=== PATIENT | female | born 1935 | race Caucasian/White ===

== ENCOUNTER → 2018-03-15 | Outpatient (CLI) | payer OTHER ==
[~2018-03-15] MED LIST: ADULT LOW DOSE81 MG PO; AMBIEN 10 MG TA10 MG PO; CALCIUM-MAGNES1 EAC1 PO; MULTIVITAMINS PO; SIMVASTATIN40 MG PO; VITAMIN D32000 UNIT PO; VITAMINC500 PO
[2018-03-15 09:20] LABS: CREATININE 0.8 mg/dL (0.6-1.0)
== END ==
LOC: CAT 08:49
PROVIDERS: Internal Medicine Gastroenterology
DX: K57.30 Diverticulosis of large intestine without perforation or abscess without bleeding (principal); K86.2 Cyst of pancreas; N28.1 Cyst of kidney, acquired; M47.816 Spondylosis without myelopathy or radiculopathy, lumbar region; R19.7 Diarrhea, unspecified; Z90.49 Acquired absence of other specified parts of digestive tract

== ENCOUNTER → 2018-10-28 | Outpatient (CLI) | payer OTHER | LOC: CAT 09:18 | DX: Z13.6 Encounter for screening for cardiovascular disorders (principal); E78.00 Pure hypercholesterolemia, unspecified; I25.10 Atherosclerotic heart disease of native coronary artery without angina pectoris ==

== ENCOUNTER 2018-11-16 07:39 | Emergency (ER) | payer OTHER ==
[~2018-11-16] VITALS: Ht 172.7 cm; Wt 47.9 kg
--- NOTE | 2018-11-16 08:05 | EKG ---
[place] [address] [facility] [place] [address] ELECTROCARDIOGRAM REPORT Name: MARKUS CARDENAS JAMES Room #: [facility].#: [id number] ������������������ Admission: ������������������ Attend Phys: Discharge: ������������������ Date of : 31 Report #: [id number] ����������������������������������������������������������������� [id number] THIS REPORT FOR: //name// [facility] ED Test Date: 2018-11-16 Test Time: 07:43:46 Pat Name: MARKUS CARDENAS Department: Room: Gender: F Caustic Loader: VANNESSAVaibhav : 1935 Requested By: Matt Martinez Order Number: [id number] MD: Sylvester Murray Measurements Intervals [place] Rate: 88 P: 74 [place]: 150 QRS: -14 QRSD: 87 T: 43 QT: 367 QTc: 444 Interpretive Statements Sinus rhythm Nonspecific ST segment abnormality Compared to ECG 04/21/2005 13:22:46 No significant changes Electronically Signed On 11-16-2018 8:05:34 CDT by Sylvester Murray [email or web address] ��������������������������������������������� <ELECTRONICALLY SIGNED> ���������������������������������������� By: Sylvester Murray MD, MERGED WITH [facility] ��������������������������������������������� 11/16/18 0805 [id number] [id number] Sylvester Murray MD, FACC /EPI
[2018-11-16 08:12] LABS: ABSOLUTE NEUTROPHILS 12.5 thou/uL (1.4-8.2); BASOPHILS 0.5 % (0.0-2.0); EOSINOPHILS 0.2 % (0.0-3.0); HEMATOCRIT 40.5 % (37.0-47.0); HEMOGLOBIN 13.6 gm/dL (12.0-15.0); LYMPHOCYTES 6.6 % (24.0-44.0); MCH 31.5 pg (26.0-34.0); MCHC 33.4 g/dL (28.0-37.0); MCV 94.1 fL (80.0-100.0); PLATELET COUNT 291 thou/uL (150-400); POLYS 82.7 % (36.0-66.0); RBC 4.31 mil/uL (4.20-5.00); RDW 13.3 % (10.5-14.5); WBC 15.1 thou/uL (4.0-11.0)
[2018-11-16 08:25] LABS: ANION GAP 18 mmol/L (7-16); BUN 17 mg/dL (7-18); CALCIUM 9.4 mg/dL (8.5-10.1); CHLORIDE 96 mmol/L (98-107); CO2 19 mmol/L (21-32); CREATININE 0.7 mg/dL (0.6-1.0); GLUCOSE 72 mg/dL (74-106); POTASSIUM 3.8 mmol/L (3.5-5.1); SODIUM 133 mmol/L (136-145)
[2018-11-16 08:35] LABS: ALBUMIN 4.1 g/dL (3.4-5.0); LIPASE 73 U/L (73-393); SGOT 23 U/L (15-37); SGPT 32 U/L (30-65); TOTAL BILIRUBIN 0.6 mg/dL (<0.1-1.0); TROPONIN-I <0.06 ng/mL (<0.06)
[2018-11-16] MEDS ORDERED: HYDROXYCHLOROQ200 M1 PO (09:15)
[2018-11-16] MEDS ORDERED: NORVASC5 MG PO (09:15)
[2018-11-16] MEDS ORDERED: PROTONIX40 M1 PO (09:15)
[2018-11-16] MEDS ORDERED: BENTYL 10 MG CA10 M1 PO (09:16)
[2018-11-16] MEDS ORDERED: CENTRUM SILVER1 EAC4 PO (09:17)
[2018-11-16] MEDS ORDERED: CVS OMEGA-3 KR1 EACH PO (09:18)
[2018-11-16] MEDS ORDERED: SUPER B COMPLE1 EAC2 PO (09:18)
[2018-11-16] MEDS ORDERED: ACYCLOVIR 400400 MG PO (09:19)
[2018-11-16 09:25] LABS: URINE BILIRUBIN NEGATIVE (Negative); URINE BLOOD NEGATIVE (Negative); URINE CLARITY CLEAR; URINE COLOR YELLOW; URINE GLUCOSE-RANDOM* NEGATIVE (Negative); URINE KETONES 3+ (Negative); URINE LEUKOCYTES-REFLEX TRACE (Negative); URINE NITRITE-REFLEX NEGATIVE (Negative); URINE PROTEIN (DIPSTICK) NEGATIVE (Negative); URINE SPECIFIC GRAVITY 1.025 (1.005-1.035); URINE UROBILINOGEN 0.2 E.U./dl (0.2-1.0)
[2018-11-16] MEDS ORDERED: FLAGYL500 M1 PO (10:55)
[2018-11-16] MEDS ORDERED: ZOFRAN ODT4 MG PO (10:55)
[2018-11-16 11:41] VITALS: BP 128/89
== END 2018-11-16 11:41 | disposition home or self-care (01) ==
LOC: ER 07:39
PROVIDERS: Emergency Medicine
DX: E16.2 Hypoglycemia, unspecified (principal); D72.829 Elevated white blood cell count, unspecified; E86.0 Dehydration; R19.7 Diarrhea, unspecified; E78.00 Pure hypercholesterolemia, unspecified; Z88.2 Allergy status to sulfonamides; Z90.710 Acquired absence of both cervix and uterus; Z87.442 Personal history of urinary calculi

== ENCOUNTER 2018-11-21 17:00 | Inpatient (IN) | payer OTHER ==
[~2018-11-21] VITALS: Ht 154.9 cm; Wt 45.4 kg
[~2018-11-21 17:00] MED LIST changes: +ACYCLOVIR 400400 MG PO; +BENTYL 10 MG CA10 M1 PO; +CENTRUM SILVER1 EAC4 PO; +CVS OMEGA-3 KR1 EACH PO; +FLAGYL500 M1 PO; +HYDROXYCHLOROQ200 M1 PO; +NORVASC5 MG PO; +PROTONIX40 M1 PO; +SUPER B COMPLE1 EAC2 PO; +ZOFRAN ODT4 MG PO
[2018-11-21 17:01] VITALS: BP 140/84
[2018-11-21 17:54] LABS: URINE BILIRUBIN NEGATIVE (Negative); URINE BLOOD TRACE (Negative); URINE CLARITY SL CLOUDY; URINE COLOR YELLOW; URINE GLUCOSE-RANDOM* NEGATIVE (Negative); URINE KETONES 3+ (Negative); URINE PROTEIN (DIPSTICK) 1+ (Negative); URINE SPECIFIC GRAVITY 1.015 (1.005-1.035); URINE UROBILINOGEN 0.2 E.U./dl (0.2-1.0)
[2018-11-21 17:56] LABS: URINE LEUKOCYTES-REFLEX 3+ (Negative); URINE NITRITE-REFLEX POSITIVE (Negative)
[2018-11-21 18:00] LABS: URINE REDUCING SUBSTANCE NEGATIVE
[2018-11-21 18:06] LABS: BACTERIA-REFLEX >30 Many /HPF (None Seen); CASTS None Seen /LPF (None Seen); CRYSTALS None Seen /LPF (None Seen); SQUAMOUS 0-3 Few /LPF (0-3); URINE RBC 0-2 Rare /HPF (0-2); URINE WBC-REFLEX >25 Many /HPF (0-5)
[2018-11-21 18:07] LABS: WBC CLUMPS Moderate (None Seen)
[2018-11-21 18:13] LABS: HEMATOCRIT 39.1 % (37.0-47.0); HEMOGLOBIN 13.3 gm/dL (12.0-15.0); MCH 31.5 pg (26.0-34.0); MCV 92.6 fL (80.0-100.0); PLATELET COUNT 292 thou/uL (150-400); RBC 4.22 mil/uL (4.20-5.00); WBC 7.1 thou/uL (4.0-11.0)
[2018-11-21 18:34] LABS: CALCIUM 9.3 mg/dL (8.5-10.1); CREATININE 0.7 mg/dL (0.6-1.0)
[2018-11-21 18:38] LABS: TOTAL BILIRUBIN 0.6 mg/dL (<0.1-1.0); TOTAL PROTEIN 7.1 g/dL (6.4-8.2)
[2018-11-21 18:44] LABS: ABSOLUTE NEUTROPHILS 4.5 thou/uL (1.4-8.2)
[2018-11-22 05:07] LABS: HEMATOCRIT 38.7 % (37.0-47.0); HEMOGLOBIN 13.1 gm/dL (12.0-15.0); MCH 31.8 pg (26.0-34.0); MCHC 33.9 g/dL (28.0-37.0); RBC 4.11 mil/uL (4.20-5.00); RDW 13.2 % (10.5-14.5); WBC 7.4 thou/uL (4.0-11.0)
[2018-11-22 05:14] LABS: CALCIUM 8.7 mg/dL (8.5-10.1); CREATININE 0.7 mg/dL (0.6-1.0); MAGNESIUM 1.7 mg/dL (1.8-2.4); POTASSIUM 3.9 mmol/L (3.5-5.1)
[2018-11-22 08:22] VITALS: BP 103/55; BP 114/65
[2018-11-22 08:44] VITALS: BP 114/65
--- NOTE | 2018-11-22 13:19 | NUR ---
Pt came to unit from ER approx 0900. A&o x4. C-diff - on special precautions. No nausea noted. On clear liquids. IVF infusing. Pt states she feels much better today. Admission completed. Family at bedside. Pain controlled. Call light within reach. Will continue to monitor.
--- NOTE | 2018-11-22 15:27 | NUR ---
ASSESSMENT: CM REVIEWED CHART AND MET WITH PATIENT AT THE BEDSIDE. PT WAS ADMITTED POSITIVE FOR CDIFF AND HAS A UTI. PT REPORTS SHE LIVES IN A HOUSE ALONE. PT REPORTS A COUPLE OF STEPS TO ENTER AND REPORTS ABOUT 13 STEPS WITH HANDRAILS TO THE BASEMENT. PT REPORTS SHE IS VERY ACTIVE AND INDEPENDENT WITH ADLS AND AMBULATION. PT REPORTS SHE JUST PUT MULCH DOWN AT HER HOUSE OUTSIDE. PT REPORTS SHE HAS NO DME OR THE NEED FOR IT. PT DENIES HAVING HH IN THE PAST OR BEING TO A SNF. CM DISCUSSED ROLE. PT STATES SHE IS INDEPENDENT AND ACTIVE AND PLANS ON RETURNING BACK HOME AT DISCHARGE. CM WILL CONTINUE TO FOLLOW TO ASSIST NEEDED.
[2018-11-22 16:40] VITALS: BP 122/47
[2018-11-22 22:10] VITALS: BP 132/52
--- NOTE | 2018-11-23 03:58 | NUR ---
ASSUMED PT CARE 1899. PT ALERT AND ORIENTED. REASSESSMENT COMPLETE. VSS. IV DRESSING C/D/I, NO SIGNS OF INFILTRATION. PT DENIES PAIN, DENIES N/V. DAUGHTER AT BEDSIDE. CALL LIGHT WITHIN REACH. WILL CONTINUE POC UNTIL EOS.
[2018-11-23 04:10] VITALS: BP 135/56
[2018-11-23 05:59] LABS: HEMATOCRIT 36.8 % (37.0-47.0); HEMOGLOBIN 12.6 gm/dL (12.0-15.0); MCH 32.3 pg (26.0-34.0); MCHC 34.2 g/dL (28.0-37.0); MCV 94.5 fL (80.0-100.0); PLATELET COUNT 289 thou/uL (150-400); RBC 3.89 mil/uL (4.20-5.00); RDW 13.5 % (10.5-14.5); WBC 4.8 thou/uL (4.0-11.0)
[2018-11-23 06:18] LABS: ALBUMIN 3.1 g/dL (3.4-5.0); CALCIUM 8.1 mg/dL (8.5-10.1); CREATININE 0.6 mg/dL (0.6-1.0); MAGNESIUM 1.9 mg/dL (1.8-2.4); POTASSIUM 4.4 mmol/L (3.5-5.1); TOTAL BILIRUBIN 0.2 mg/dL (<0.1-1.0); TOTAL PROTEIN 5.3 g/dL (6.4-8.2)
[2018-11-23 08:00] LABS: METAMYELOCYTES 1 %
[2018-11-23 08:01] LABS: ANISOCYTOSIS SLIGHT
[2018-11-23 08:52] VITALS: BP 143/71
--- NOTE | 2018-11-23 11:11 | NUR ---
PT A&OX4, AMBULATES WITH STAND BY ASSIST. IV INTACT IN L FA INFUSING FLUIDS W/O COMPS. PAIN TOLERATED SOFT DIET W/O PAIN OR N/V. TOLERATING PO WELL. WILL CONT POC.
[2018-11-23] MEDS ORDERED: FIRVANQ50 MG/1 ML PO (14:20)
[2018-11-23] MEDS ORDERED: CEFDINIR300 MG PO (14:24)
[2018-11-23 15:07] LABS: GLYCOHEMOGLOBIN (HGB A1C) 5.8 % (4.8-5.6)
[2018-11-23 15:20] VITALS: BP 143/71
--- NOTE | 2018-11-23 16:03 | NUR ---
DC ORDER RECEIVED. IV REMOVED FROM L FA. DC INSTRUCTIONS, SCRIPTS AND F/U APPOINTMENT REVIEWED WITH PT. HEARING AID SPECIALIST WHEELED PT TO FRONT ENTRANCE.
== END 2018-11-23 15:57 | disposition home or self-care (01) | DRG 372 ==
LOC: ER 17:00 → EROBS 19:45 → 4E 19:45 → EROBS 19:45 → 4E 11-22 09:10
PROVIDERS: Nurse Practitioner Acute Care; Nurse Practitioner Family; ADMIT Internal Medicine Geriatric Medicine
DX: A04.72 Enterocolitis due to Clostridium difficile, not specified as recurrent (principal); E87.1 Hypo-osmolality and hyponatremia; M33.10 Other dermatomyositis, organ involvement unspecified; E83.42 Hypomagnesemia; E16.2 Hypoglycemia, unspecified; E86.0 Dehydration; I10 Essential (primary) hypertension; E78.00 Pure hypercholesterolemia, unspecified; F17.210 Nicotine dependence, cigarettes, uncomplicated; K22.70 Barrett's esophagus without dysplasia; N30.90 Cystitis, unspecified without hematuria; E78.5 Hyperlipidemia, unspecified; Z90.710 Acquired absence of both cervix and uterus; Z88.2 Allergy status to sulfonamides; Z82.49 Family history of ischemic heart disease and other diseases of the circulatory system; Z80.0 Family history of malignant neoplasm of digestive organs; Z87.442 Personal history of urinary calculi; Z90.49 Acquired absence of other specified parts of digestive tract
CPT/HCPCS: 10084

== ENCOUNTER → 2019-05-22 | Outpatient (CLI) | payer OTHER ==
[~2019-05-22] MED LIST changes: +CEFDINIR300 MG PO; +FIRVANQ50 MG/1 ML PO
== END ==
LOC: RAD 15:20
DX: R91.8 Other nonspecific abnormal finding of lung field (principal); J44.9 Chronic obstructive pulmonary disease, unspecified; J34.89 Other specified disorders of nose and nasal sinuses; I10 Essential (primary) hypertension; M41.84 Other forms of scoliosis, thoracic region

== ENCOUNTER 2019-06-01 10:22 | Emergency (ER) | payer OTHER ==
[~2019-06-01] VITALS: Ht 154.9 cm; Wt 40.0 kg
[2019-06-01 11:08] LABS: URINE BILIRUBIN NEGATIVE (Negative); URINE BLOOD NEGATIVE (Negative); URINE CLARITY CLEAR; URINE COLOR YELLOW; URINE GLUCOSE-RANDOM* NEGATIVE (Negative); URINE KETONES NEGATIVE (Negative); URINE LEUKOCYTES-REFLEX TRACE (Negative); URINE NITRITE-REFLEX NEGATIVE (Negative); URINE PROTEIN (DIPSTICK) NEGATIVE (Negative); URINE UROBILINOGEN 0.2 E.U./dl (0.2-1.0)
[2019-06-01 11:11] LABS: HEMATOCRIT 36.3 % (37.0-47.0); HEMOGLOBIN 12.2 gm/dL (12.0-15.0); MCH 31.4 pg (26.0-34.0); MCHC 33.6 g/dL (28.0-37.0); MCV 93.6 fL (80.0-100.0); PLATELET COUNT 432 thou/uL (150-400); RBC 3.88 mil/uL (4.20-5.00); RDW 13.4 % (10.5-14.5); WBC 8.7 thou/uL (4.0-11.0)
[2019-06-01] MEDS ORDERED: METRONIDAZOLE500 M4 PO (11:12)
[2019-06-01 11:26] LABS: CALCIUM 9.8 mg/dL (8.5-10.1); CREATININE 0.7 mg/dL (0.6-1.0)
[2019-06-01 11:33] LABS: ALBUMIN 3.9 g/dL (3.4-5.0); TOTAL BILIRUBIN 0.3 mg/dL (<0.1-1.0); TOTAL PROTEIN 6.6 g/dL (6.4-8.2)
[2019-06-01 12:15] LABS: ABSOLUTE NEUTROPHILS 6.1 thou/uL (1.4-8.2)
[2019-06-01 12:16] LABS: ANISOCYTOSIS SLIGHT
[2019-06-01 14:01] VITALS: BP 114/55
--- NOTE | 2019-06-01 16:11 | EKG ---
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: : 1935 Requested By: Matt Martinez Order Number: [id number] MD: Braulio Collins Measurements Intervals [place] Rate: 75 P: 51 [place]: 155 QRS: 12 QRSD: 90 T: 63 QT: 379 QTc: 424 Interpretive Statements Sinus rhythm Atrial premature complexes Compared to ECG 11/16/2018 07:43:46 Atrial premature complex(es) now present ST (T wave) deviation no longer present Electronically Signed On 06-01-2019 16:10:45 INCIDENT ANALYST by Braulio Collins [email or web address] <ELECTRONICALLY SIGNED> By: Braulio Collins MD 06/01/19 1610 12 Braulio Collins MD /ALMITA
== END 2019-06-01 14:00 | disposition home or self-care (01) ==
LOC: ER 10:22
PROVIDERS: Emergency Medicine
DX: E87.1 Hypo-osmolality and hyponatremia (principal); R19.7 Diarrhea, unspecified; Z90.710 Acquired absence of both cervix and uterus; Z87.442 Personal history of urinary calculi; Z90.49 Acquired absence of other specified parts of digestive tract; Z88.2 Allergy status to sulfonamides

== ENCOUNTER → 2019-08-10 | Outpatient (CLI) | payer OTHER ==
[~2019-08-10] MED LIST changes: +METRONIDAZOLE500 M4 PO
== END ==
LOC: SJCVC 13:49
DX: R94.31 Abnormal electrocardiogram [ECG] [EKG] (principal); I49.1 Atrial premature depolarization; R93.1 Abnormal findings on diagnostic imaging of heart and coronary circulation; I10 Essential (primary) hypertension; E78.5 Hyperlipidemia, unspecified; Z87.891 Personal history of nicotine dependence; Z79.82 Long term (current) use of aspirin; Z79.899 Other long term (current) drug therapy

== ENCOUNTER → 2019-11-08 | Outpatient (CLI) | payer OTHER | LOC: SJCVCIMAG 09-22 11:01 | PROVIDERS: ATTEND Internal Medicine | DX: I08.3 Combined rheumatic disorders of mitral, aortic and tricuspid valves (principal); R93.1 Abnormal findings on diagnostic imaging of heart and coronary circulation; R00.2 Palpitations; I10 Essential (primary) hypertension; E78.5 Hyperlipidemia, unspecified ==

== ENCOUNTER → 2019-12-26 | Outpatient (CLI) | payer OTHER | LOC: LAB 09:53 | PROVIDERS: ATTEND Nurse Practitioner | DX: R05 Cough (principal); R06.02 Shortness of breath; Z20.828 Contact with and (suspected) exposure to other viral communicable diseases ==